=== PATIENT | male | born 2005 | race Caucasian/White ===

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

== ENCOUNTER 2024-03-16 00:16 | Emergency (ER) | payer SELFPAY ==
[~2024-03-16] VITALS: Ht 180.3 cm; Wt 61.2 kg
[2024-03-16] MEDS ORDERED: SPIRONOLACTONE50 M1 PO (00:28)
== END 2024-03-16 00:48 | disposition left against medical advice (07) ==
LOC: ED 00:16
DX: N44.00 Torsion of testis, unspecified (principal); Z53.29 Procedure and treatment not carried out because of patient's decision for other reasons; Z98.890 Other specified postprocedural states

== ENCOUNTER 2024-10-20 01:30 | Emergency (ER) | payer BC ==
[~2024-10-20] VITALS: Ht 185.4 cm; Wt 63.5 kg
[~2024-10-20 01:30] MED LIST changes: +SPIRONOLACTONE50 M1 PO
[2024-10-20] MEDS ORDERED: SODIUM CHLORIDE 0.9% 1,000 ML IV ONE ×2 (01:50→05:10)
[2024-10-20 02:20] LABS: HEMATOCRIT 44.2 % (42.0-52.0); MEAN CELL VOLUME 90.2 fl (80.0-94.0); MEAN CORPUSCULAR HGB 30.6 pg (27.0-31.0); MEAN CORPUSCULAR HGB CONC 33.9 g/dl (33.0-37.0); PLATELET COUNT AUTOMATED 340 10*3/uL (130-400); RED CELL DISTRI WIDTH 12.4 % (0-14.5)
[2024-10-20 02:21] LABS: MANUAL DIFF REFLEX YES
[2024-10-20 02:43] LABS: ALKALINE PHOSPHATASE 102 U/L (46-116); BUN 12 mg/dl (9-23); CHLORIDE 100 mmol/L (98-107); SGPT/ALT 12 U/L (5-49); TOTAL PROTEIN 7.9 gm/dL (6.0-8.0)
[2024-10-20 02:47] LABS: PLATELET SUFFICIENCY NORMAL (NORMAL); TOTAL CELLS COUNTED 100 #CELLS
[2024-10-20 02:51] LABS: ETHYL ALCOHOL < 3.0 mg/dl (<3)
[2024-10-20] MEDS ORDERED: POTASSIUM CHLORIDE 20 MEQ TAB PO ONE (03:20)
[2024-10-20] MEDS ORDERED: Ondansetron Hydrochloride 4 MG/2 ML VIAL IV ONE ×2 (05:10→07:45)
[2024-10-20 07:14] LABS: BILIRUBIN Negative (Negative); BLOOD Negative (Negative); CLARITY Clear (Clear); COLOR Yellow (Yellow); GLUCOSE Negative (Negative); KETONE 2+ (Negative); LEUKO ESTERASE Negative (Negative); NITRITE Negative (Negative); PH 6.5 (4.5-8.0)
[2024-10-20 07:20] LABS: URINE AMPHETAMINES Negative (1000ng/ml); URINE BARBITURATES Negative (200ng/ml); URINE BENZODIAZEPINES Negative (200ng/ml); URINE CANNABINOIDS (THC) Positive (50ng/ml); URINE COCAINE Negative (300ng/ml); URINE METHADONE Negative (300ng/ml); URINE OPIATES Negative (300ng/ml); URINE PHENCYCLIDINE Negative (25ng/ml)
[2024-10-20 07:27] LABS: BACTERIA 2+; EPITHELIAL CELLS 0-2; MUCOUS 3+; WBC 0-2 wbc/hpf (0-5)
[2024-10-20] MEDS ORDERED: hydrOXYzine pamoate 25 MG CAP PO ONE (09:50)
[2024-10-20] MEDS ORDERED: LORazepam 0.5 MG TAB PO ONE (09:55)
[2024-10-20] MEDS ORDERED: Midazolam Hydrochloride 2 MG/2 ML VIAL IV ONE (10:15)
== END 2024-10-20 13:50 ==
LOC: ED 01:30
PROVIDERS: Internal Medicine
DX: F43.21 Adjustment disorder with depressed mood (principal); R42 Dizziness and giddiness; R11.2 Nausea with vomiting, unspecified; Z79.899 Other long term (current) drug therapy

== ENCOUNTER 2024-12-04 12:08 | Emergency (ER) | payer BC ==
[~2024-12-04] VITALS: Wt 59.0 kg
[2024-12-04] MEDS ORDERED: PROZAC20 MG PO (12:26)
[2024-12-04] MEDS ORDERED: DOTTI1 EAC1 T (12:28)
[2024-12-04] MEDS ORDERED: HYDROXYZINE PAM25 M1 PO (12:28)
[2024-12-04] MEDS ORDERED: OLANZAPINE7.5 M1 PO (12:29)
[2024-12-04] MEDS ORDERED: DAILY-VITE TA400 MCG PO (12:30)
[2024-12-04] MEDS ORDERED: TRAZODONE50 MG PO (12:30)
[2024-12-04 13:49] LABS: URINE AMPHETAMINES Negative (1000ng/ml); URINE BARBITURATES Negative (200ng/ml); URINE BENZODIAZEPINES Negative (200ng/ml); URINE CANNABINOIDS (THC) Positive (50ng/ml); URINE COCAINE Negative (300ng/ml); URINE METHADONE Negative (300ng/ml); URINE OPIATES Negative (300ng/ml); URINE PHENCYCLIDINE Negative (25ng/ml)
[2024-12-04 14:45] LABS: BASO % 0.2 % (0.0-1.0); EOS % 0.1 % (1.0-4.0); HEMATOCRIT 39.5 % (42.0-52.0); MEAN CELL VOLUME 92.3 fl (80.0-94.0); MEAN CORPUSCULAR HGB 31.1 pg (27.0-31.0); MEAN CORPUSCULAR HGB CONC 33.7 g/dl (33.0-37.0); MEAN PLATELET VOLUME 10.2 fl (9.6-12.3); MONO # 0.6 10*3/uL (0.1-1.0); MONO % 4.7 % (3.0-9.0); NEUT # 10.8 10*3/uL (2.3-7.9); PLATELET COUNT AUTOMATED 249 10*3/uL (130-400); RED BLOOD COUNT 4.28 10*6/uL (4.50-5.90); RED CELL DISTRI WIDTH 12.5 % (0-14.5); WHITE BLOOD COUNT 13.5 10*3/uL (4.8-10.8)
[2024-12-04 15:05] LABS: BILIRUBIN Negative (Negative); BLOOD Negative (Negative); CLARITY Clear (Clear); COLOR Yellow (Yellow); GLUCOSE Negative (Negative); KETONE Negative (Negative); LEUKO ESTERASE Negative (Negative); NITRITE Negative (Negative); PH 6.5 (4.5-8.0); UROBILINOGEN 0.2 E.U./dl (0.0-1.0)
[2024-12-04 15:16] LABS: ALKALINE PHOSPHATASE 79 U/L (46-116); BUN 11 mg/dl (9-23); CHLORIDE 103 mmol/L (98-107); POTASSIUM 3.5 mmol/L (3.4-5.1); SGPT/ALT 11 U/L (5-49); TOTAL PROTEIN 6.7 gm/dL (6.0-8.0)
[2024-12-04 15:18] LABS: MUCOUS 1+; WBC 0-2 wbc/hpf (0-5)
[2024-12-04 15:19] LABS: BACTERIA 1+
== END 2024-12-04 18:16 ==
LOC: ED 12:08
PROVIDERS: Emergency Medicine
DX: F43.21 Adjustment disorder with depressed mood (principal); R45.851 Suicidal ideations; Z79.899 Other long term (current) drug therapy

== ENCOUNTER 2024-12-13 19:57 | Emergency (ER) | payer BC ==
[~2024-12-13] VITALS: Ht 180.3 cm; Wt 59.0 kg
[~2024-12-13 19:57] MED LIST changes: +DAILY-VITE TA400 MCG PO; +DOTTI1 EAC1 T; +HYDROXYZINE PAM25 M1 PO; +OLANZAPINE7.5 M1 PO; +PROZAC20 MG PO; +TRAZODONE50 MG PO
[2024-12-13] MEDS ORDERED: diazePAM 10 MG/2 ML SYR IV ONE ×3 (20:20→22:30)
[2024-12-13] MEDS ORDERED: SODIUM CHLORIDE 0.9% 1,000 ML IV ONE (20:20)
[2024-12-13 20:35] LABS: BASO # 0.1 10*3/uL (0.0-0.1); BASO % 0.5 % (0.0-1.0); EOS # 0.2 10*3/uL (0.0-0.4); EOS % 1.3 % (1.0-4.0); MEAN CELL VOLUME 90.1 fl (80.0-94.0); MEAN CORPUSCULAR HGB 31.5 pg (27.0-31.0); MEAN PLATELET VOLUME 10.5 fl (9.6-12.3); MONO # 1.1 10*3/uL (0.1-1.0); MONO % 8.4 % (3.0-9.0); NEUT # 7.2 10*3/uL (2.3-7.9); NEUT % 53.1 % (47.0-73.0); NUCLEATED RED BLOOD CELL 0.0 % (0.0-0.0); NUCLEATED RED BLOOD CELL 0.0 10*3/uL (0.0-0.0); PLATELET COUNT AUTOMATED 316 10*3/uL (130-400); RED CELL DISTRI WIDTH 12.7 % (0-14.5)
[2024-12-13 20:57] LABS: BUN 16 mg/dl (9-23); CPK 83 U/L (34-171); SGPT/ALT 11 U/L (5-49)
[2024-12-13 23:52] LABS: ETHYL ALCOHOL < 3.0 mg/dl (<3)
== END 2024-12-14 00:08 | disposition left against medical advice (07) ==
LOC: ED 19:57
PROVIDERS: Nurse Practitioner Family
DX: R25.1 Tremor, unspecified (principal); T43.505A Adverse effect of unspecified antipsychotics and neuroleptics, initial encounter; R11.2 Nausea with vomiting, unspecified; Z79.899 Other long term (current) drug therapy; Z53.29 Procedure and treatment not carried out because of patient's decision for other reasons; Y92.89 Other specified places as the place of occurrence of the external cause